=== PATIENT | female | born 1965 | race African-American/Black ===

== ENCOUNTER 2022-05-04 11:13 | Inpatient (IN) | payer OTHER ==
[2022-05-04 11:40] VITALS: BMI 27.1
[2022-05-04] MEDS ORDERED: NICOTINE 10 MG CARTRIDGE (INHALER) IH PRN (13:39)
[2022-05-04] MEDS ORDERED: MAG HYDROX/AL HYDROX/SIMETH 30 ML UNIT-DOSE CUP PO PRN (13:39)
[2022-05-04] MEDS ORDERED: IBUPROFEN 400 MG TABLET (FP) PO PRN (13:39)
[2022-05-04] MEDS ORDERED: NALOXONE HCL (KLOXXADO) 8 MG SPRAY NS PRN (13:39)
[2022-05-04] MEDS ORDERED: LOPERAMIDE HCL 2 MG CAPSULE PO PRN (13:39)
[2022-05-04] MEDS ORDERED: BISMUTH SUBSALICYLATE 524 MG/30 ML PO PRN (13:39)
[2022-05-04] MEDS ORDERED: BACLOFEN 10 MG TABLET (FP) PO PRN (13:39)
[2022-05-04] MEDS ORDERED: DICYCLOMINE HCL 10 MG CAPSULE PO PRN (13:39)
[2022-05-04] MEDS ORDERED: BENZOCAINE/MENTHOL (CHLORASEPTIC ) LOZENGE MM PRN (13:39)
[2022-05-04] MEDS ORDERED: ONDANSETRON *ODT* 4 MG TABLET SL PRN (13:39)
[2022-05-04] MEDS ORDERED: ACETAMINOPHEN 325 MG TABLET (FP) PO PRN ×2 (13:39)
[2022-05-04] MEDS ORDERED: POLYETHYLENE GLYCOL (HEALTHYLAX) 3350 17 GM PACKET PO PRN (13:39)
[2022-05-04] MEDS: PRENATAL VITAMINS W/ FOLIC ACID TABLET (FP) PO SCH (14:28)
[2022-05-04] MEDS: MELATONIN 5 MG TABLETS PO SCH (22:13)
[2022-05-04] MEDS: THIAMINE HCL 100 MG TABLET (FP) PO SCH (22:13)
[2022-05-05] MEDS: PRENATAL VITAMINS W/ FOLIC ACID TABLET (FP) PO SCH (10:40)
[2022-05-05] MEDS: diazePAM 5 MG TABLET PO SCH ×3 (10:41→22:28)
[2022-05-05 10:53] LABS: HEMATOCRIT 37.1 % (32.4-45.2); HEMOGLOBIN 12.5 GM/dL (10.7-15.3); MCH 27.7 pg (25.7-33.7); MCHC 33.7 g/dl (32.0-36.0); MEAN PLT VOLUME 7.8 fl (7.5-11.1); PLATELET COUNT 193 10^3/uL (134-434); RBC 4.52 M/mm3 (3.60-5.2); RDW 13.7 % (11.6-15.6)
[2022-05-05 11:31] LABS: CALCIUM 8.9 mg/dL (8.5-10.1)
[2022-05-05 11:32] LABS: ALBUMIN 3.4 g/dl (3.4-5.0); BLOOD UREA NITROGEN 17.2 mg/dL (7-18)
[2022-05-05 11:35] LABS: BILIRUBIN,TOTAL 0.6 mg/dL (0.2-1); CREATININE 0.7 mg/dL (0.55-1.3)
[2022-05-05 11:36] LABS: TOT PROT 7.3 g/dl (6.4-8.2)
[2022-05-05] MEDS: MELATONIN 5 MG TABLETS PO SCH (22:28)
[2022-05-05] MEDS: THIAMINE HCL 100 MG TABLET (FP) PO SCH (22:28)
[2022-05-05] MEDS: hydrOXYzine PAMOATE 25 MG CAPSULE (FP) PO PRN (22:29)
[2022-05-06] MEDS: diazePAM 5 MG TABLET PO SCH ×4 (05:38→22:24)
[2022-05-06] MEDS: PRENATAL VITAMINS W/ FOLIC ACID TABLET (FP) PO SCH (10:42)
[2022-05-06] MEDS: MAGNESIUM HYDROX 2400MG/30ML ORAL SUSPENSION 30 ML CUP PO PRN (15:47)
[2022-05-06] MEDS: THIAMINE HCL 100 MG TABLET (FP) PO SCH (22:24)
[2022-05-06] MEDS: MELATONIN 5 MG TABLETS PO SCH (22:24)
[2022-05-07] MEDS: diazePAM 5 MG TABLET PO SCH ×3 (05:26→22:48)
[2022-05-07] MEDS: PRENATAL VITAMINS W/ FOLIC ACID TABLET (FP) PO SCH (10:24)
[2022-05-07] MEDS: amLODIPine BESYLATE 10 MG TABLET (FP) PO SCH (10:51)
[2022-05-07] MEDS: cloNIDine HCL 0.1 MG TABLET PO SCH ×2 (10:51→22:47)
[2022-05-07] MEDS: MELATONIN 5 MG TABLETS PO SCH (22:47)
[2022-05-07] MEDS: THIAMINE HCL 100 MG TABLET (FP) PO SCH (22:47)
[2022-05-08] MEDS: diazePAM 5 MG TABLET PO SCH ×2 (05:09→17:25)
[2022-05-08] MEDS: amLODIPine BESYLATE 10 MG TABLET (FP) PO SCH (10:09)
[2022-05-08] MEDS: cloNIDine HCL 0.1 MG TABLET PO SCH ×2 (10:09→22:27)
[2022-05-08] MEDS: PRENATAL VITAMINS W/ FOLIC ACID TABLET (FP) PO SCH (10:09)
[2022-05-08] MEDS: IBUPROFEN 600 MG TABLET (FP) PO PRN (10:10)
[2022-05-08] MEDS: MAGNESIUM HYDROX 2400MG/30ML ORAL SUSPENSION 30 ML CUP PO PRN (18:01)
[2022-05-08] MEDS: MELATONIN 5 MG TABLETS PO SCH (22:26)
[2022-05-08] MEDS: THIAMINE HCL 100 MG TABLET (FP) PO SCH (22:27)
[2022-05-08] MEDS: hydrOXYzine PAMOATE 25 MG CAPSULE (FP) PO PRN (22:27)
[2022-05-09] MEDS ORDERED: diazePAM 5 MG TABLET PO ONE (06:00)
[2022-05-09 09:43] VITALS: RESP 18
[2022-05-09] MEDS: cloNIDine HCL 0.1 MG TABLET PO SCH (10:37)
[2022-05-09] MEDS: amLODIPine BESYLATE 10 MG TABLET (FP) PO SCH (10:37)
[2022-05-09] MEDS: PRENATAL VITAMINS W/ FOLIC ACID TABLET (FP) PO SCH (10:37)
[2022-05-09] MEDS: IBUPROFEN 600 MG TABLET (FP) PO PRN (10:38)
[2022-05-09 14:04] VITALS: BP 131/89; PULSE 76; TEMP 98.1
== END 2022-05-09 15:30 | disposition home or self-care (01) | DRG 897 ==
LOC: YASAS 11:13 → UNDOADMIN 13:35 → Y6N 13:35
PROVIDERS: ADMIT Allergy & Immunology; ATTEND Surgery
PROC: HZ2ZZZZ Detoxification Services for Substance Abuse Treatment (ICD-10-PCS; principal; 2022-05-04)
DX: F10.230 Alcohol dependence with withdrawal, uncomplicated (principal); F14.20 Cocaine dependence, uncomplicated; F12.20 Cannabis dependence, uncomplicated; F17.210 Nicotine dependence, cigarettes, uncomplicated; I10 Essential (primary) hypertension; G89.29 Other chronic pain; M48.02 Spinal stenosis, cervical region; Z28.310 Unvaccinated for COVID-19; Z28.9 Immunization not carried out for unspecified reason
CPT/HCPCS: 36415; 80053; 82140; 85027; 86780; 87811; 93005; 93010; C9803-CS; J0475; U0003; U0005